=== PATIENT | male | born 1965 | race American Indian/Alaskan Native ===

== ENCOUNTER 2019-09-06 19:23 | Emergency (ER) | payer SELFPAY ==
[2019-09-06 19:43] VITALS: BP 198/104
[2019-09-06] MEDS ORDERED: IBUPROFEN 800 MG TAB PO ONE (19:57)
--- NOTE | 2019-09-06 20:00 | Emergency Department Report ---
ED General Adult HPI - General Chief complaint: High BP Stated complaint: FEELS HOT Time Seen by Provider: 09/06/19 19:53 Source: patient Mode of arrival: Ambulatory Limitations: No Limitations - Related Data Allergies Allergy/AdvReac Type Severity Reaction Status Date / Time No Known Allergies Allergy Unverified 09/06/19 19:31 ED Review of Systems ROS: Stated complaint: FEELS HOT Other details as noted in HPI Comment: All other systems reviewed and negative ED Past Medical Hx - Past Medical History Previous Medical History?: Yes Hx Hypertension: Yes Additional medical history: High Cholesterol - Surgical History Past Surgical History?: No - Family History Family history: no significant - Social History Smoking Status: Current Some Day Smoker ED Physical Exam - General Limitations: No Limitations General appearance: alert, in no apparent distress - Head Head exam: Present: atraumatic, normocephalic - Eye Eye exam: Present: normal appearance - ENT ENT exam: Present: mucous membranes moist - Neck Neck exam: Present: normal inspection - Respiratory Respiratory exam: Present: normal lung sounds bilaterally. Absent: respiratory distress - Cardiovascular Cardiovascular Exam: Present: regular rate, normal rhythm. Absent: systolic murmur, diastolic murmur, rubs, gallop - GI/Abdominal GI/Abdominal exam: Present: soft, normal bowel sounds - Rectal Rectal exam: Present: deferred - Extremities Exam Extremities exam: Present: normal inspection - Back Exam Back exam: Present: normal inspection - Neurological Exam Neurological exam: Present: alert, oriented X3 - Psychiatric Psychiatric exam: Present: normal affect, normal mood - Skin Skin exam: Present: warm, dry, intact, normal color. Absent: rash ED Course Vital Signs 09/06/19 19:31 Temperature 97.7 F Pulse Rate 103 H Respiratory 18 Rate Blood Pressure 198/104 O2 Sat by Pulse 97 Oximetry ED Medical Decision Making - Medical Decision Making Vital Signs 09/06/19 19:31 Temperature 97.7 F Pulse Rate 103 H Respiratory 18 Rate Blood Pressure 198/104 O2 Sat by Pulse 97 Oximetry - Differential Diagnosis HTN A/C Critical care attestation.: If time is entered above; I have spent that time in minutes in the direct care of this critically ill patient, excluding procedure time. ED Disposition Clinical Impression: Hypertension, Non-adherence to medical treatment Disposition: DC-01 TO HOME OR SELFCARE Is pt being admited?: No Does the pt Need Aspirin: No Condition: Stable Instructions: Hypertension (ED) Additional Instructions: SEE PCP IN AM PLANNED FOR YOUR BLOOD PRESSURE HYDRATE WELL WITH WATER MOTRIN OR TYLENOL FOR PAIN OR FEVER Referrals: RAIZA GOODMAN MD [Staff Physician] - 3-5 Days Time of Disposition: 19:58
--- NOTE | 2019-09-06 20:02 | Emergency Department Report ---
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 Due to findings the following was ordered: NO LIFE THREAT MSE - HAS APPNT IN AM WITH PCP HE HAS NO CP NO SOB HE STATES HE IS HOT- NO FEVER MSE TO PCP IN AM ED Disposition for MSE Clinical Impression: Hypertension, Non-adherence to medical treatment Disposition: DC-01 TO HOME OR SELFCARE Condition: Stable Instructions: Hypertension (ED) Additional Instructions: SEE PCP IN AM PLANNED FOR YOUR BLOOD PRESSURE HYDRATE WELL WITH WATER MOTRIN OR TYLENOL FOR PAIN OR FEVER Referrals: RAIZA GOODMAN MD [Staff Physician] - 3-5 Days
== END 2019-09-06 20:10 | disposition home or self-care (01) ==
LOC: ED 19:23
DX: I10 Essential (primary) hypertension (principal)
CPT/HCPCS: 99282

== ENCOUNTER 2019-09-07 08:04 | Emergency (ER) | payer SELFPAY | END 2019-09-07 08:54 | disposition left against medical advice (07) | LOC: ED 08:04 | DX: I10 Essential (primary) hypertension (principal); Z76.0 Encounter for issue of repeat prescription; Z53.21 Procedure and treatment not carried out due to patient leaving prior to being seen by health care provider ==